=== PATIENT | male | born 1995 | race Caucasian/White ===

== ENCOUNTER 2022-10-30 11:48 | Emergency (ER) | payer BC, SELFPAY ==
[~2022-10-30] VITALS: Ht 167.6 cm; Wt 101.9 kg
[2022-10-30] MEDS ORDERED: IBUPROFEN 800 MG TAB PO ONE (12:55)
[2022-10-30 13:45] VITALS: BP 148/111; TEMP 98.4; O2SAT 100
== END 2022-10-30 13:48 | disposition home or self-care (01) ==
LOC: M ED 11:48
DX: S90.31XA Contusion of right foot, initial encounter (principal); W20.8XXA Other cause of strike by thrown, projected or falling object, initial encounter; F10.10 Alcohol abuse, uncomplicated; Y99.0 Civilian activity done for income or pay